=== PATIENT | male | born 1965 | race American Indian/Alaskan Native ===

== ENCOUNTER 2019-11-23 08:41 | Day surgery (SDC) | payer OTHER ==
[~2019-11-23 08:41] MED LIST: SODIUM CHLORIDE 0.9% 1000 ML 1,000 ML IV SCH
[2019-11-23] MEDS ORDERED: SODIUM CHLORIDE 0.9% 1000 ML 1,000 ML ONE (10:27)
[2019-11-23] MEDS ORDERED: LIDOCAINE MPF (2%) 20 MG/1 ML VIAL 5 ML ONE (10:30)
--- NOTE | 2019-11-23 10:40 | Anesthesia Consultation ---
Anesthesia Consult and Med Hx Date of service: 11/23/19 - Airway Anesthetic Teeth Evaluation: Good, Partials (upper) ROM Head & Neck: Adequate Mental/Hyoid Distance: Adequate Mallampati Class: Class III Intubation Access Assessment: Possibly Difficult - Pulmonary Exam CTA: Yes - Cardiac Exam Cardiac Exam: RRR - Pre-Operative Health Status ASA Pre-Surgery Classification: ASA1 Proposed Anesthetic Plan: MAC - Pulmonary Hx Smoking: No Hx Respiratory Symptoms: No - Cardiovascular System Hx Hypertension: No Hx Heart Attack/AMI: No Hx Percutaneous Transluminal Coronary Angioplasty (PTCA): No - Central Nervous System CVA: No Hx Psychiatric Problems: Yes (anxiety, depression) - Gastrointestinal Hx Gastroesophageal Reflux Disease: No - Endocrine Hx Renal Disease: No Hx Liver Disease: No Hx Insulin Dependent Diabetes: No Hx Non-Insulin Dependent Diabetes: No Hx Thyroid Disease: No - Other Systems Hx Obesity: Yes (BMI 30)
--- NOTE | 2019-11-23 10:40 | Anesthesia Day of Surgery ---
Anesthesia Day of Surgery - Day of Surgery Patient Examined: Yes Patient H&P Reviewed: Yes Patient is NPO: Yes
[2019-11-23] MEDS ORDERED: propofoL 200 MG/20 ML VIAL IV ONE ×2 (12:53)
--- NOTE | 2019-11-23 13:11 | Procedure Note ---
Date of procedure: 11/23/19 Pre-op diagnosis: Colon Polyp Screening Post-op diagnosis: other (No Colon Polyps noted/ minor,Diverticular Disease/ Minor,Internal Hemorrhoid) Procedure: Colonoscopy Anesthesia: MAC Surgeon: TERESO SRINIVASAN Estimated blood loss: none Pathology: none Condition: stable Disposition: same day (Encourage fiber intake. Resume home medication and follow up in 1 to 2 weeks ([phone]).)
--- NOTE | 2019-11-23 13:21 | Operative Report ---
PROCEDURE: Colonoscopy. INDICATIONS: A 54-year-old -[place] gentleman in otherwise good health, who has a colonoscopy done because of his age as part of colon polyp screening and he does have a family history of cancer. The patient's grandmother had breast cancer. Colonoscopy was done as part of colon polyp screening. DESCRIPTION OF PROCEDURE: Procedure was done after getting informed consent with MAC anesthesia. Initial rectal exam was unremarkable. Instrument was passed through the rectum onto the cecum, which was identified with ileocecal valve and appendiceal orifice. The cecum was also viewed on the retroverted view. No additional pathology was noted. Cecum, ascending colon showed normal mucosa. In the proximal transverse colon, there was a very minor diverticula noted, probably the beginnings of a diverticula. No other additional pathology was noted in the remaining portion of the transverse colon, the descending colon, the sigmoid and the rectum showed some minor internal hemorrhoid. ASSESSMENT: Colon polyp screening, family history of cancer, the patient's grandmother had breast cancer. No colon polyps noted. Minor diverticula involving the proximal transverse colon, minor internal hemorrhoid. There was no bleeding associated with the procedure. No complications associated with the procedure. The patient will be asked to resume home medication. Follow up in the office in 1-2 weeks' time and also to encourage to take fiber supplements. The procedure was done in the GI lab with assistance of the GI lab team, which included RN, keagan Greenwood and with assistance of anesthesia. JOB# [id number] GEORGETTE/EFRAÍN
[2019-11-23 13:30] VITALS: BP 126/84
--- NOTE | 2019-11-23 15:59 | Post Anesthesia Evaluation ---
- Post Anesthesia Evaluation Patient Participated: Yes Airway Patent: Yes Stable Respiratory Function: Yes Nausea/Vomiting: No Temp > 96.8F: Yes Pain Manageable: Yes Adequeate Hydration: Yes Anesthesia Complications: No
== END 2019-11-23 08:42 | disposition home or self-care (01) ==
LOC: GIO 08:41
DX: Z12.11 Encounter for screening for malignant neoplasm of colon (principal); K57.30 Diverticulosis of large intestine without perforation or abscess without bleeding; K64.8 Other hemorrhoids; F41.9 Anxiety disorder, unspecified; F32.9 Major depressive disorder, single episode, unspecified; E66.9 Obesity, unspecified; Z68.30 Body mass index [BMI] 30.0-30.9, adult; Z80.3 Family history of malignant neoplasm of breast
CPT/HCPCS: 45378; J2704; J7030